=== PATIENT | female | born 1960 | race Caucasian/White ===

== ENCOUNTER 2020-04-28 22:05 | Emergency (ER) | payer MEDICAID ==
[~2020-04-28] VITALS: Ht 177.8 cm; Wt 113.6 kg
[~2020-04-28 22:05] MED LIST: IBUP-24 PO; MULT-1085 PO
[2020-04-28 22:21] VITALS: BP 167/92
== END 2020-04-28 23:00 | disposition home or self-care (01) ==
LOC: ER 22:05
DX: B34.9 Viral infection, unspecified (principal); R05 Cough; R06.02 Shortness of breath; R43.8 Other disturbances of smell and taste; Z20.828 Contact with and (suspected) exposure to other viral communicable diseases; Z79.899 Other long term (current) drug therapy
CPT/HCPCS: 36415; 87635; 99283; C9803